=== PATIENT | female | born 1980 ===

== ENCOUNTER 2018-09-06 15:05 | Emergency (ER) | payer OTHER ==
[~2018-09-06] VITALS: Ht 157.5 cm; Wt 59.0 kg
[2018-09-06] MEDS ORDERED: ZIRTEC (16:17)
== END 2018-09-06 18:07 | disposition home or self-care (01) ==
LOC: ER 15:05
DX: S90.31XA Contusion of right foot, initial encounter (principal); W22.8XXA Striking against or struck by other objects, initial encounter; Y93.89 Activity, other specified; Y92.89 Other specified places as the place of occurrence of the external cause; Y99.8 Other external cause status

== ENCOUNTER 2021-02-12 13:28 | Outpatient (CLI) | payer OTHER ==
[~2021-02-12 13:28] MED LIST: ZIRTEC
== END 2021-02-12 13:31 | disposition home or self-care (01) ==
LOC: LAB 13:28
PROVIDERS: ATTEND Obstetrics & Gynecology
DX: N95.1 Menopausal and female climacteric states (principal); E78.49 Other hyperlipidemia

== ENCOUNTER 2022-06-21 18:26 | Emergency (ER) | payer OTHER ==
[~2022-06-21] VITALS: Ht 154.9 cm; Wt 61.7 kg
[2022-06-21] MEDS ORDERED: BACLOFEN10 MG PO (18:35)
[2022-06-21] MEDS ORDERED: PROPRANOLOL HCL10 MG PO (18:36)
== END 2022-06-21 22:21 | disposition home or self-care (01) ==
LOC: ER 18:26
DX: R11.10 Vomiting, unspecified (principal); R10.32 Left lower quadrant pain; Z91.013 Allergy to seafood